=== PATIENT | female | born 1950 | race Two or more races ===

== ENCOUNTER 2016-08-24 11:24 | Emergency (ER) | payer MEDICARE, MEDICAID ==
[~2016-08-24] VITALS: Ht 154.9 cm; Wt 54.9 kg
[~2016-08-24 11:24] MED LIST: CLO01T PO; CLON1TAB3 PO; FLUO10CA15 PO; HYDR-2652 PO; LEVO25TA6 PO; LOSA100T27 PO
[2016-08-24 13:13] LABS: Basophils # (auto) 0 uL; Basophils % (auto) 0.1 % (0.0-2.0); DEFINITIVE VIEW TRANSMISSION; Eosinophils # (auto) 0.1 uL; Eosinophils % (auto) 1.2 % (0.0-7.0); Hematocrit 26.3 % (36.0-46.0); Hemoglobin 8.5 g/dL (12.2-16.2); Lymphocytes # (auto) 0.9 uL; Lymphocytes % (auto) 12.7 % (10.0-50.0); Mean Corpuscular Hemoglobin 31.7 pg (28.0-32.0); Mean Corpuscular Hgb Conc. 32.2 g/dL (32.0-36.0); Mean Corpuscular Volume 98.4 fL (80.0-100.0); Mean Platelet Volume 8.1 fL (7.4-10.4); Monocytes # (auto) 0.5 uL; Neutrophils # (auto) 5.8 uL; Platelet Count (auto) 302 10^3/uL (140-450); Red Cell Distribution Width 16.4 % (11.6-16.0); White Blood Cell 7.3 10^3/uL (4.4-10.8)
[2016-08-24 13:31] LABS: Bilirubin, Total 0.2 mg/dL (0.2-1.0); Calcium 8.2 mg/dL (8.5-10.1); Potassium 4.5 mmol/L (3.5-5.1); Total Protein 7.6 g/dL (6.4-8.2)
[2016-08-24 17:50] VITALS: BP 155/57
[2016-08-24 18:05] VITALS: BP 152/63
[2016-08-24 19:00] VITALS: BP 156/63
== END 2016-08-24 20:05 | disposition home or self-care (01) ==
LOC: ER 11:26
DX: D64.89 Other specified anemias (principal); I12.0 Hypertensive chronic kidney disease with stage 5 chronic kidney disease or end stage renal disease; N18.6 End stage renal disease; E11.22 Type 2 diabetes mellitus with diabetic chronic kidney disease; Z88.0 Allergy status to penicillin; Z99.2 Dependence on renal dialysis
CPT/HCPCS: 36415; 36430; 80053; 82962; 85025; 85049; 86850; 86900; 86901; 86920; 93005; 99285; J7040; P9016